=== PATIENT | female | born 1990 | race Caucasian/White ===

== ENCOUNTER 2019-10-18 05:50 | Day surgery (SDC) | payer BC ==
[~2019-10-18] VITALS: Ht 154.9 cm; Wt 56.2 kg
[~2019-10-18 05:50] MED LIST: BENADRYL25 MG PO; FLUOXETINE HCL20 M1 PO; MULTIVITAMINS1 EAC8 PO; VITAMIN D350 MC3 PO
--- NOTE | 2019-10-21 12:32 | OR ---
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 POSTOPERATIVE DIAGNOSIS: Carcinoma in situ of the exocervix, pending pathology. PROCEDURE: LEEP procedure. ANESTHESIA: General LMA. ESTIMATED BLOOD LOSS: Minimal. DRAINS: None. INDICATIONS AND FINDINGS: The patient is a 29-year-old female, 1, para 0, AB1, who has had no care for many years and recently had an abnormal Pap smear. 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 The patient was extremely anxious and did not wish to proceed with this in the office even with any sedation given her history. At the time of surgery, her exocervix had a wide nonstaining area. DESCRIPTION OF PROCEDURE: The patient was prepped and draped in the dorsal lithotomy position. Insulated speculum was placed. Lugol solution was instilled into the vagina. The wide nonstaining area was identified. A wide loop was used for the LEEP. The current was initially 45, blended. The loop was used to excise the exocervix, but it did not completely remove the patient's left side. The left side required a second pass with a slightly higher power at 50 to be removed completely. Following this, a narrow deep loop was used to remove the endocervix in a single pass. The base was cauterized with the ball cautery, this was followed by Monsel's solution. There was essentially no blood loss at all. The cervix was observed. There was no evidence of Electronically Signed By: NIHARIKA GOMEZ MD 10/21/19 1232 PATIENT NAME: JOSELES OPERATIVE REPORT DATE OF : [birth year] REPORT #: [id number] PHYSICIAN: NIHARIKA GOMEZ MD PCP: JUAQUIN COLES PA-C REPORT IS CONFIDENTIAL AND NOT TO BE RELEASED WITHOUT AUTHORIZATION [address] [address] Signed any ongoing bleeding and the procedure was terminated. The patient was taken to the recovery room in good condition. Niharika Gomez MD PJW/MODL /[id number] Copies: ~ Electronically Signed By: NIHARIKA GOMEZ MD 10/21/19 1232 PATIENT NAME: JOSELES OPERATIVE REPORT DATE OF : [birth year] REPORT #: [id number] PHYSICIAN: NIHARIKA GOMEZ MD PCP: JUAQUIN COLES PA-C REPORT IS CONFIDENTIAL AND NOT TO BE RELEASED WITHOUT AUTHORIZATION
--- NOTE | 2019-10-22 11:02 | PATH ---
[facility] [address] [place], [place] [address] Signed SPECIMEN(S): A RIGHT EXOCERVIX SPECIMEN(S): B LEFT EXOCERVIX SPECIMEN(S): C ENDOCERVIX SPECIMEN SOURCE: A. RIGHT EXOCERVIX B. LEFT EXOCERVIX C. ENDOCERVIX CLINICAL HISTORY: Carcinoma in situ (GEORGE III) of exocervix FINAL PATHOLOGIC DIAGNOSIS: A. Exocervix, right, LEEP: - High-grade squamous intraepithelial lesion (HSIL, GEORGE 3). - Margins negative for dysplasia. B. Exocervix, left, LEEP: - High-grade squamous intraepithelial lesion (HSIL, GEORGE 3). - Dysplasia extends to endocervical tissue margin, see Comment. C. Endocervix, excision: - Endocervical mucosa with acute and chronic inflammation and focal squamous metaplasia. - Negative for dysplasia or malignancy. COMMENT: The HSIL present in the left exocervix (B) is seen extending to the endocervical tissue margin, confirmed by p16 immunohistochemical stain; the ectocervical tissue edge is negative for dysplasia. No dysplasia is seen in the endocervical specimen (C). Clinical correlation is required. NAL:cml:C NR MICROSCOPIC EXAMINATION: Histologic sections of all submitted blocks are examined by light microscopy. An immunohistochemical stain (with appropriately staining controls) for p16 performed on block B2 supports the diagnosis of HSIL. These findings, together with the gross examination, support the pathologic diagnosis. GROSS DESCRIPTION: Three specimens are received in three containers, labeled "HD." PATIENT NAME: JOSE,LES VALENCIA PATHOLOGY DATE OF : [birth year] REPORT #: [id number] PHYSICIAN: LESLY JOSE PCP: JUAQUIN COLES PA-C REPORT IS CONFIDENTIAL AND NOT TO BE RELEASED WITHOUT AUTHORIZATION [facility] [address] [place], [place] [address] Signed A. The specimen, labeled "HD, A," and designated on the requisition "right exocervix," is received in formalin and consists of a melo-pink mucosal tissue fragment with thickened mucus measuring 2.0 x 1.4 x 0.5 cm. The surgical margin is inked black, specimen serially sectioned, and entirely submitted in cassette A1-A2. B. The specimen, labeled "HD, B," and designated on the requisition "left exocervix," is received in formalin and consists of a melo-dusky red mucosal tissue fragment with mucus and clot material measuring 1.8 x 0.8 x 0.4 cm. The surgical margin is inked black, specimen is serially sectioned and entirely submitted in cassettes B1-B2. C. The specimen, labeled "HD, C," and designated on the requisition "endocervix," is received in formalin and consists of a melo-red mucosal tissue fragment measuring 1.7 x 0.7 x 0.4 cm. The surgical margin is inked black, specimen is serially sectioned, and entirely submitted in cassette C1. AT (under the direct supervision of a pathologist) The Gross Description was prepared using a voice recognition system. The report was reviewed for accuracy; however, sound-alike word errors, addition and/or deletions may occur. If there is any question about this report, please contact Client Services. ADDITIONAL NOTES: Immunohistochemical and/or in situ hybridization studies were performed on this case with the appropriate positive controls that react as expected. This test was developed and its performance characteristics determined by [facility]. It has not been cleared or approved by the U.S. Food and Drug Administration. The FDA has determined that such clearance or approval is not necessary. This test is used for clinical purposes. It should not be regarded as investigational or for research. [facility] is certified under the Clinical Laboratory Improvement Amendments of 1988 (CLIA) as qualified to perform high complexity clinical laboratory testing. PERFORMING LABORATORY: The technical component was performed by [facility], [address] [place] [id number] ([facility] Teacher: Saira Hawk MD; CLIA# [id number]). Professional interpretation [facility], [address] [address] (CLIA# [id number]). PATIENT NAME: LES GARCIA PATHOLOGY DATE OF : [birth year] REPORT #: [id number] PHYSICIAN: LESLY PATHOLOGY PCP: JUAQUIN COLES PA-C REPORT IS CONFIDENTIAL AND NOT TO BE RELEASED WITHOUT AUTHORIZATION [facility] [address] [place], [place] [address] Signed Diagnostician: Carolynn Parada MD Pathologist Electronically Signed 10/22/2019 Copies: ~ PATIENT NAME: LES GARCIA VALENCIA PATHOLOGY DATE OF : [birth year] REPORT #: [id number] PHYSICIAN: LESLY PATHOLOGY PCP: JUAQUIN COLES PA-C REPORT IS CONFIDENTIAL AND NOT TO BE RELEASED WITHOUT AUTHORIZATION
== END 2019-10-18 09:20 | disposition home or self-care (01) ==
LOC: DS 05:50
PROVIDERS: Obstetrics & Gynecology
PROC: 0UBC7ZZ Excision of Cervix, Via Natural or Artificial Opening (ICD-10-PCS; principal; 2019-10-18 06:45)
DX: N87.9 Dysplasia of cervix uteri, unspecified (principal); N72 Inflammatory disease of cervix uteri; F17.210 Nicotine dependence, cigarettes, uncomplicated; F31.9 Bipolar disorder, unspecified; F41.1 Generalized anxiety disorder; Z79.899 Other long term (current) drug therapy
CPT/HCPCS: 00940; J1100; J1885; J2250; J2405; J2704; J2765; J3010; J7121

== ENCOUNTER 2022-01-15 09:34 | Emergency (ER) | payer OTHER ==
[~2022-01-15] VITALS: Ht 154.9 cm; Wt 56.7 kg
[2022-01-15] MEDS ORDERED: METHADONE HCL5 MG (09:56)
[2022-01-15] MEDS ORDERED: RELISTOR150 MG PO (12:16)
== END 2022-01-15 12:25 | disposition home or self-care (01) ==
LOC: ED 09:34
DX: K59.03 Drug induced constipation (principal); T40.2X5A Adverse effect of other opioids, initial encounter; R33.9 Retention of urine, unspecified; F17.200 Nicotine dependence, unspecified, uncomplicated; Y92.9 Unspecified place or not applicable
CPT/HCPCS: 36415; 74177; 80053; 81001; 83690; 84703; 85025; J1885; J2212; J7030; Q9967

== ENCOUNTER 2024-08-12 12:56 | Emergency (ER) | payer OTHER ==
[~2024-08-12] VITALS: Ht 154.9 cm; Wt 59.0 kg
[~2024-08-12 12:56] MED LIST changes: +METHADONE HCL5 MG; +RELISTOR150 MG PO
[2024-08-12] MEDS ORDERED: ACETAMINOPHEN 500 MG TAB PO ONE (13:15)
[2024-08-12] MEDS ORDERED: NALOXONE 4 MG NASAL SPRAY #2 HOME.PACK NAS ONE (14:15)
[2024-08-12 14:21] VITALS: BP 111/84
== END 2024-08-12 14:23 | disposition home or self-care (01) ==
LOC: ED 12:56
DX: T40.411A Poisoning by fentanyl or fentanyl analogs, accidental (unintentional), initial encounter (principal); I10 Essential (primary) hypertension; F17.200 Nicotine dependence, unspecified, uncomplicated
CPT/HCPCS: 99284; A9270; J3490